=== PATIENT | male | born 1995 | race African-American/Black ===

== ENCOUNTER 2018-10-04 12:45 | Emergency (ER) | payer BC ==
[~2018-10-04] VITALS: Ht 188 cm; Wt 81.8 kg
[2018-10-04 13:28] VITALS: BP 139/77
[2018-10-04] MEDS ORDERED: CefTRIAXone SODIUM 1 GM/VIAL IM ONE (13:30)
[2018-10-04] MEDS ORDERED: AZITHROMYCIN 250 MG TABLET PO ONE (13:30)
[2018-10-04] MEDS ORDERED: LIDOCAINE 0.5% 50 ML VIAL INJ ONE (13:45)
[2018-10-04] MEDS ORDERED: LIDOCAINE 1% 10 ML VIAL INJ ONE (14:00)
== END 2018-10-04 14:26 | disposition home or self-care (01) ==
LOC: EMS 12:48
DX: A56.8 Sexually transmitted chlamydial infection of other sites (principal); J45.909 Unspecified asthma, uncomplicated; F17.210 Nicotine dependence, cigarettes, uncomplicated
CPT/HCPCS: 87491; 87591; 96372; 99283; J0696; J3490

== ENCOUNTER 2019-05-14 22:53 | Emergency (ER) | payer BC ==
[~2019-05-14] VITALS: Ht 188 cm; Wt 88.6 kg
[2019-05-14 23:29] LABS: APPEARANCE,URINE CLOUDY (CLEAR); GLUCOSE, URINE (UA) NEGATIVE (NEGATIVE); KETONES,URINE NEGATIVE (NEGATIVE); LEUKOCYTE ESTERASE ,URINE SMALL (NEGATIVE); NITRATE,URINE NEGATIVE (NEGATIVE); OCCULT BLOOD,URINE NEGATIVE (NEGATIVE); PROTEIN,URINE TRACE (NEGATIVE)
[2019-05-14 23:30] LABS: BILIRUBIN,URINE PRELIM. POSITIVE (NEGATIVE)
[2019-05-14 23:59] LABS: RBC,URINE 0-2 /HPF (0-2)
[2019-05-15] LABS: BACTERIA,URINE Few /HPF (None Seen); MUCUS,URINE Many LPF (None Seen); SQUAMOUS EPITHELIAL CELL,UR Few /LPF (None Seen)
[2019-05-15 00:10] VITALS: BP 130/68
== END 2019-05-15 02:40 | disposition left against medical advice (07) ==
LOC: EMS 22:54
DX: R10.9 Unspecified abdominal pain (principal); Z53.1 Procedure and treatment not carried out because of patient's decision for reasons of belief and group pressure
CPT/HCPCS: 87086; 87491; 87591